=== PATIENT | male | born 1950 | race Caucasian/White ===

== ENCOUNTER 2019-04-16 21:25 | Emergency (ER) | payer OTHER, MEDICARE ==
[2019-04-16] MEDS ORDERED: SERTRALINE50 MG PO (22:09)
[2019-04-16] MEDS ORDERED: PENTASA500 MG PO (22:40)
[2019-04-16] MEDS ORDERED: FLEXERIL PO (23:10)
[2019-04-16] MEDS ORDERED: TRAMADOL HYDROC50 MG PO (23:10)
[2019-04-16 23:38] VITALS: BP 138/64
== END 2019-04-16 23:37 | disposition home or self-care (01) | DRG 103 ==
LOC: ED 21:25
DX: R51 Headache (principal); M62.48 Contracture of muscle, other site

== ENCOUNTER 2022-10-30 09:58 | Inpatient (IN) | payer OTHER, MEDICARE ==
[2022-10-30] VITALS (19 sets, daily range): BP systolic 94–117; BP diastolic 49–70
[~2022-10-30] VITALS: Ht 172.7 cm; Wt 96.8 kg
[~2022-10-30 09:58] MED LIST: FLEXERIL PO; PENTASA500 MG PO; SERTRALINE50 MG PO; TRAMADOL HYDROC50 MG PO
[2022-10-30 10:42] LABS: BASO% 0.3 % (0-3); EOS% 6.1 % (0-8); HEMATOCRIT 44.1 % (39.0-50.0); IMMATURE GRANULOCYTES 0.3 % (0.0-5.0); LYMPH% 21.7 % (15-41); MEAN CELL VOLUME 99.1 fL CALC (80.0-100.0); MEAN CORPUSCULAR HGB 31.5 pG CALC (26.0-32.0); MEAN CORPUSCULAR HGB CONC 31.7 g/dL CAL (32.0-36.0); MONO% 7.9 % (2-13); NEUT# 6.53 thou/uL (1.82-7.42); NEUT% 63.7 % (42-76); RED BLOOD COUNT 4.45 mill/uL (4.70-6.10); RED CELL DISTRI WIDTH 13.7 % (11.5-15.5)
[2022-10-30 10:53] LABS: ALBUMIN 3.9 g/dL (3.2-5.0); ALKALINE PHOSPHATASE 111 u/l (38-126); AMYLASE 84 u/l (30-110); ANION GAP 12 (6-22 (CALC)); BUN 14 mg/dL (8-23); BUN/CREATININE RATIO 13 (12-20 (CALC)); C-REACTIVE PROTEIN 5.8 mg/dL (0-0.9); CARBON DIOXIDE 28 mmol/l (22-30); CHLORIDE 101 mmol/l (95-108); GFR FOR AFR.AMER. > 60 ML/MIN (>=60 (CALC)); GFR OTHER RACES > 60 ML/MIN (>=60 (CALC)); LIPASE 37 u/l (23-300); POTASSIUM 3.7 mmol/l (3.5-5.1); SGOT/AST 24 u/l (19-48); SODIUM 138 mmol/l (137-146); TOTAL PROTEIN 7.6 g/dL (6.3-8.2)
[2022-10-30 13:02] LABS: PROTHROMBIN TIME 9.6 SECONDS (9.0-12.5)
[2022-10-30] MEDS ORDERED: PEPCID40 MG PO (13:19)
[2022-10-30] MEDS ORDERED: TYLENOL500 MG PO (13:19)
[2022-10-30 19:26] LABS: ACT PARTIAL THROMBO TIME 91.6 SECONDS (20.0-32.5); PROTHROMBIN TIME 10.4 SECONDS (9.0-12.5)
[2022-10-31 02:05] LABS: MEAN CELL VOLUME 100.5 fL CALC (80.0-100.0); MEAN CORPUSCULAR HGB 31.9 pG CALC (26.0-32.0); MEAN CORPUSCULAR HGB CONC 31.7 g/dL CAL (32.0-36.0); RED BLOOD COUNT 3.76 mill/uL (4.70-6.10); RED CELL DISTRI WIDTH 13.9 % (11.5-15.5)
[2022-10-31 02:23] LABS: ALKALINE PHOSPHATASE 85 u/l (38-126); ANION GAP 8 (6-22 (CALC)); BUN 12 mg/dL (8-23); BUN/CREATININE RATIO 15 (12-20 (CALC)); CARBON DIOXIDE 28 mmol/l (22-30); CHLORIDE 103 mmol/l (95-108); CREATININE 0.8 mg/dL (0.7-1.3); GFR FOR AFR.AMER. > 60 ML/MIN (>=60 (CALC)); GFR OTHER RACES > 60 ML/MIN (>=60 (CALC)); POTASSIUM 3.6 mmol/l (3.5-5.1); SGOT/AST 20 u/l (19-48); SODIUM 135 mmol/l (137-146); TOTAL PROTEIN 6.1 g/dL (6.3-8.2)
[2022-10-31 02:25] LABS: ACT PARTIAL THROMBO TIME 115.2 SECONDS (20.0-32.5); ALBUMIN 3.1 g/dL (3.2-5.0); BILIRUBIN, TOTAL 0.4 mg/dL (0.2-1.3); HEMATOCRIT 37.8 % (39.0-50.0); INTERNATIONAL NORMALIZED RATIO 1.1 RATIO (0.7-1.3); PROTHROMBIN TIME 10.5 SECONDS (9.0-12.5)
[2022-10-31 03:43] VITALS: BP 122/62
[2022-10-31 04:07] VITALS: BP 122/62
[2022-10-31 06:23] VITALS: BP 144/54
[2022-10-31 09:30] LABS: ACT PARTIAL THROMBO TIME 56.8 SECONDS (20.0-32.5); PROTHROMBIN TIME 10.2 SECONDS (9.0-12.5)
[2022-10-31] MEDS ORDERED: ELIQUIS5 MG PO (11:12)
[2022-10-31] MEDS ORDERED: XARELTO STARTER1 TAB PO (11:18)
[2022-10-31 11:21] VITALS: BP 138/67
== END 2022-10-31 12:19 | disposition home or self-care (01) | DRG 176 ==
LOC: ED 09:58 → MS2 12:50
PROVIDERS: Family Medicine; ADMIT Internal Medicine; ATTEND Internal Medicine
DX: I26.99 Other pulmonary embolism without acute cor pulmonale (principal); K21.9 Gastro-esophageal reflux disease without esophagitis; K44.9 Diaphragmatic hernia without obstruction or gangrene; K52.9 Noninfective gastroenteritis and colitis, unspecified; F32.A Depression, unspecified; Z85.46 Personal history of malignant neoplasm of prostate; Z90.79 Acquired absence of other genital organ(s); Z73.3 Stress, not elsewhere classified
CPT/HCPCS: J1644; Q9967